=== PATIENT | male | born 1965 | race Caucasian/White ===

== ENCOUNTER 2020-01-22 12:58 | Outpatient (REF) | payer BC, SELFPAY ==
--- NOTE | 2020-01-22 12:59 | CT_ITS ---
EXAMINATION: CT CHEST WITHOUT CONTRAST CLINICAL INFORMATION: Nonspecific abnormal of abnormal finding of lung field COMPARISON: None TECHNIQUE: Multidetector volumetric CT imaging of the chest was done. Axial MIP volume rendering provided. Sagittal and coronal reformatted images were obtained. This CT examination was performed using dose optimization techniques as appropriate, variously including the following: *Automated exposure control *Adjustment of mA and/or kV according to patient size (this includes techniques or standardized protocols for targeted exams where dose is matched to indication/reason for exam; i.e. extremities or head) *Use of iterative reconstruction technique DLP: 254 mGy-cm FINDINGS: LUNGS: There is a 2 mm calcified right lower lobe nodule axial image 307 series 5. The lungs are otherwise clear. There is a 2 mm calcified right lower lobe nodule axial image 349 series 5. MEDIASTINUM: The mediastinum is normal. PLEURA: There is no pleural effusion. No pleural mass or thickening. AXILLA: No lymphadenopathy. UPPER ABDOMEN: There is diverticulosis of the colon. OSSEOUS STRUCTURES: There are degenerative changes of the spine. CT/CT chest wo con IMPRESSION: Small calcified right pulmonary nodules probably representing calcified granulomas. Mild diverticulosis of the colon.
== END 2020-01-22 12:59 | disposition home or self-care (01) ==
LOC: HO.CT 12:58
PROVIDERS: PCP Nurse Practitioner Family; Visit Provider Nurse Practitioner Family
DX: R91.8 Other nonspecific abnormal finding of lung field (principal); R91.1 Solitary pulmonary nodule
CPT/HCPCS: 71250

== ENCOUNTER 2020-10-24 06:02 | Outpatient (REF) | payer BC, SELFPAY ==
[2020-10-24 11:27] LABS: Glucose Urine UA NEG (NEG); Leukocyte Esterase Urine NEG (NEG); Nitrite Urine NEG (NEG); PH 5.5 (5.0-8.0); Specific Gravity - Urine >= 1.030 (1.005-1.025); Urine Blood NEG (NEG); Urine Ketones NEG (NEG); Urine Protein NEG (NEG-TRACE)
[2020-10-24 11:29] LABS: Appearance Urine CLEAR; Color Urine YELLOW
[2020-10-24 11:52] LABS: Alanine Aminotransferase 17 U/L (0-40); Albumin Level 4.4 g/dL (3.5-5.0); Alkaline Phosphatase 75 U/L (39-117); Anion Gap 13 (12-20); Aspartate Amino Transferase 13 U/L (5-37); Bilirubin Total 0.6 mg/dL (0.0-1.0); Blood Urea Nitrogen 14 mg/dL (9-16); Calcium 9.7 mg/dL (8.4-10.2); Carbon Dioxide 26 mmol/L (22-29); Chloride 106 mmol/L (96-108); Cholesterol 151 mg/dL; Estimated Glomerular Filt Rate > 60; Glucose Fasting 89 mg/dL (60-99); HDL Cholesterol 62 mg/dL; LDL Cholesterol Calculated 78 mg/dl; Potassium 4.2 mmol/L (3.3-5.1); Sodium 141 mmol/L (135-145); Total Protein 7.5 g/dL (6.5-8.0); Triglycerides 57 mg/dL
[2020-10-24 11:57] LABS: Prostate Specific Antigen Scr 0.65 ng/mL (<0.05-4.0); TSH reflex Free T4 4.35 uIU/mL (0.32-4.0)
[2020-10-24 12:37] LABS: Free T4 (Free Thyroxine) 0.95 ng/dL (0.71-1.85)
== END 2020-10-24 06:03 | disposition home or self-care (01) ==
LOC: HO.HMGCLDS 06:02
PROVIDERS: PCP Nurse Practitioner Family; Visit Provider Nurse Practitioner Family
DX: Z00.00 Encounter for general adult medical examination without abnormal findings (principal); Z12.5 Encounter for screening for malignant neoplasm of prostate
CPT/HCPCS: 36415; 80053; 80061; 81003; 84153; 84439; 84443

== ENCOUNTER 2020-11-07 07:56 | Outpatient (REF) | payer BC, SELFPAY ==
--- NOTE | ~2020-11-07 | CT_ITS ---
EXAMINATION: CT ABDOMEN AND PELVIS WITH CONTRAST CLINICAL INFORMATION: Lower abdominal pain COMPARISON: None TECHNIQUE: Multidetector volumetric images were obtained from the superior aspect of the liver through the pubic symphysis following administration 85 mL of Omnipaque 350 intravenous contrast. Sagittal and coronal reformatted images were obtained on the technologist's workstation. Oral contrast: No This CT examination was performed using dose optimization techniques as appropriate, variously including the following: *Automated exposure control *Adjustment of mA and/or kV according to patient size (this includes techniques or standardized protocols for targeted exams where dose is matched to indication/reason for exam; i.e. extremities or head) *Use of iterative reconstruction technique DLP: 573.9 mGy-cm FINDINGS: LUNG BASES: Bibasilar atelectasis. The heart is not enlarged. No pericardial effusion. LIVER, GALLBLADDER, AND BILIARY TREE: The liver is normal in size, shape, and attenuation. No focal hepatic lesion or biliary ductal dilatation is present. The gallbladder is unremarkable with no evidence of radiopaque gallstones, gallbladder wall thickening, or obvious pericholecystic inflammatory changes. PANCREAS: Unremarkable. SPLEEN: Unremarkable. ADRENAL GLANDS: Unremarkable. KIDNEYS AND URETERS: The kidneys are normal in size, shape, and attenuation. No hydronephrosis, hydroureter, or calculi seen. No perinephric stranding. BLADDER: Unremarkable. GASTROINTESTINAL TRACT: Colonic diverticulosis without acute diverticulitis. Moderate fecal loading in the rectal vault. The small and large bowel are unremarkable. The appendix is not definitively visualized. No secondary signs of appendicitis. ABDOMINAL WALL: Small fat filled right inguinal hernia. LYMPH NODES: No enlarged lymph nodes per size criteria. Scattered subcentimeter bilateral inguinal and mesenteric lymph nodes are noted. VASCULAR: Abdominal aorta is nonaneurysmal. Retroaortic left renal vein visualized. Pelvic phleboliths are noted. PELVIC VISCERA: The prostate is not enlarged. OSSEOUS STRUCTURES: Degenerative changes of the thoracolumbar spine greatest at L5-S1. No large lytic or blastic lesions are noted. Degenerative changes of the bilateral sacroiliac joints. CT/CT abdomen pelvis w con IMPRESSION: 1. No acute process of the abdomen or pelvis identified. 2. Colonic diverticulosis without acute diverticulitis. 3. Moderate fecal loading in the rectal vault. 4. Small fat filled right inguinal hernia. 5. Retroaortic left renal vein.
[2020-11-07] MEDS: iohexoL 350 MG/ML 100 ML INFUS..BTL IV (10:52)
== END 2020-11-07 07:57 | disposition home or self-care (01) ==
LOC: HO.CT 07:56
PROVIDERS: PCP Nurse Practitioner Family; Visit Provider Nurse Practitioner Family
DX: R10.30 Lower abdominal pain, unspecified (principal)
CPT/HCPCS: 74177; Q9967

== ENCOUNTER 2021-04-23 09:20 | Outpatient (REF) | payer BC, SELFPAY ==
[2021-04-23 11:02] LABS: MANUAL DIFF FLAG NO
[2021-04-23 11:23] LABS: Basophils Percent Auto 0.3 % (0-2); Eosinophils Absolute Auto 0.3 X10*3/uL (0.0-0.4); Eosinophils Percent Auto 4.9 % (0-4); Hematocrit 42.9 % (42.0-52.0); Hemoglobin 13.6 g/dl (14.0-18.0); Imm Gran Abs Auto 0.01 X10*3/uL (0.00-0.03); Imm Gran Pct Auto 0.2 % (0.0-0.4); Lymphocytes Absolute Auto 1.4 X10*3/uL (1.2-4.9); Lymphocytes Percent Auto 22.7 % (20-40); Mean Corpuscular HGB Conc 31.7 g/dl (31.0-36.0); Mean Corpuscular Hemoglobin 27.9 pg (27.0-33.0); Mean Corpuscular Volume 88.1 fL (80.0-98.0); Monocytes Absolute Auto 0.6 X10*3/uL (0.1-1.2); Monocytes Percent Auto 9.1 % (2-11); Neutrophils Percent Auto 62.8 % (45-73); Platelet Count 254 X10*3/uL (160-400); Red Blood Count 4.87 X10*6/uL (4.60-5.80); Red Cell Distribution Width 14.2 % (11.0-16.0); White Blood Count 6.3 X10*3/uL (4.8-10.8)
[2021-04-23 12:00] LABS: TSH reflex Free T4 2.26 uIU/mL (0.32-4.0)
[2021-04-24 09:27] LABS: Thyroid Peroxidase Antibodies 61 IU/mL (<9)
== END 2021-04-23 09:21 | disposition home or self-care (01) ==
LOC: HO.HMGCLDS 09:20
PROVIDERS: Visit Provider Nurse Practitioner Family
DX: J02.9 Acute pharyngitis, unspecified (principal); R94.6 Abnormal results of thyroid function studies
CPT/HCPCS: 36415; 84443; 85025; 86376

== ENCOUNTER 2021-07-08 15:24 | Outpatient (REF) | payer BC, SELFPAY ==
[2021-07-08 16:32] LABS: MANUAL DIFF FLAG NO
[2021-07-08 16:38] LABS: Basophils Percent Auto 0.2 % (0-2); Eosinophils Absolute Auto 0.5 X10*3/uL (0.0-0.4); Eosinophils Percent Auto 5.6 % (0-4); Hematocrit 41.5 % (42.0-52.0); Hemoglobin 13.5 g/dl (14.0-18.0); Imm Gran Abs Auto 0.03 X10*3/uL (0.00-0.03); Imm Gran Pct Auto 0.3 % (0.0-0.4); Lymphocytes Absolute Auto 2.4 X10*3/uL (1.2-4.9); Lymphocytes Percent Auto 27.3 % (20-40); Mean Corpuscular HGB Conc 32.5 g/dl (31.0-36.0); Mean Corpuscular Hemoglobin 27.7 pg (27.0-33.0); Mean Corpuscular Volume 85.2 fL (80.0-98.0); Mean Platelet Volume 10.6 fL (9.4-12.4); Monocytes Absolute Auto 0.7 X10*3/uL (0.1-1.2); Monocytes Percent Auto 8.1 % (2-11); Neutrophils Absolute Auto 5.1 x10*3/uL (2.0-8.3); Neutrophils Percent Auto 58.5 % (45-73); Platelet Count 239 X10*3/uL (160-400); Red Blood Count 4.87 X10*6/uL (4.60-5.80); Red Cell Distribution Width 14.5 % (11.0-16.0); White Blood Count 8.6 X10*3/uL (4.8-10.8)
== END 2021-07-08 15:25 | disposition home or self-care (01) ==
LOC: HO.LAB 15:24
PROVIDERS: PCP Nurse Practitioner Family; Visit Provider Nurse Practitioner Family
DX: D64.9 Anemia, unspecified (principal)
CPT/HCPCS: 36415; 85025

== ENCOUNTER 2021-07-29 | Outpatient (REF) | payer BC, SELFPAY ==
[2021-07-31 06:53] LABS: FIT Int Ctl YES; FIT1 NEGATIVE (NEGATIVE); FIT2 NEGATIVE (NEGATIVE)
== END 2021-07-29 00:01 | disposition home or self-care (01) ==
LOC: HO.LNP
PROVIDERS: Visit Provider Nurse Practitioner Family
DX: D64.9 Anemia, unspecified (principal)
CPT/HCPCS: 82274

== ENCOUNTER 2021-08-03 10:59 | Outpatient (REF) | payer BC, SELFPAY ==
[2021-08-03 12:48] LABS: MANUAL DIFF FLAG NO
[2021-08-03 12:54] LABS: Basophils Percent Auto 0.1 % (0-2); Eosinophils Absolute Auto 0.4 X10*3/uL (0.0-0.4); Eosinophils Percent Auto 5.3 % (0-4); Hematocrit 42.6 % (42.0-52.0); Hemoglobin 13.5 g/dl (14.0-18.0); Imm Gran Abs Auto 0.02 X10*3/uL (0.00-0.03); Imm Gran Pct Auto 0.3 % (0.0-0.4); Immature Retic Fraction 10.4 % (2.3-13.4); Lymphocytes Absolute Auto 1.8 X10*3/uL (1.2-4.9); Lymphocytes Percent Auto 23.9 % (20-40); Mean Corpuscular HGB Conc 31.7 g/dl (31.0-36.0); Mean Corpuscular Hemoglobin 27.8 pg (27.0-33.0); Mean Corpuscular Volume 87.7 fL (80.0-98.0); Mean Platelet Volume 10.7 fL (9.4-12.4); Monocytes Absolute Auto 0.6 X10*3/uL (0.1-1.2); Monocytes Percent Auto 8.7 % (2-11); Neutrophils Absolute Auto 4.5 x10*3/uL (2.0-8.3); Neutrophils Percent Auto 61.7 % (45-73); Platelet Count 233 X10*3/uL (160-400); Red Blood Count 4.86 X10*6/uL (4.60-5.80); Red Cell Distribution Width 14.9 % (11.0-16.0); Retic HGB Equivalent 32.4 pg (30.0-35.0); Reticulocyte Percent 1.1 % (0.5-1.8); Reticulocytes Absolute 0.054 X10*6/uL (0.026-0.095); White Blood Count 7.4 X10*3/uL (4.8-10.8)
[2021-08-03 13:28] LABS: Appearance Urine CLEAR; Color Urine YELLOW; Glucose Urine UA NEG (NEG); Leukocyte Esterase Urine NEG (NEG); Nitrite Urine NEG (NEG); Specific Gravity - Urine 1.025 (1.005-1.025); Urine Blood NEG (NEG); Urine Ketones NEG (NEG); Urine Protein NEG (NEG-TRACE)
[2021-08-03 13:37] LABS: Alanine Aminotransferase 23 U/L (0-40); Albumin Level 4.3 g/dL (3.5-5.0); Alkaline Phosphatase 83 U/L (39-117); Anion Gap 13 (12-20); Aspartate Amino Transferase 15 U/L (5-37); Bilirubin Total 0.6 mg/dL (0.0-1.0); Blood Urea Nitrogen 20 mg/dL (9-16); Calcium 9.1 mg/dL (8.4-10.2); Carbon Dioxide 26 mmol/L (22-29); Chloride 105 mmol/L (96-108); Estimated Glomerular Filt Rate > 60; Ferritin 249 ng/mL (20-250); Glucose Random 94 mg/dL (60-115); Iron 62 mcg/dL (45-160); Percent Iron Saturation 23 % (15-50); Sodium 140 mmol/L (135-145); TSH reflex Free T4 1.93 uIU/mL (0.32-4.0); Total Iron Binding Capacity 270 mcg/dL (228-428); Total Protein 7.6 g/dL (6.5-8.0); Unsaturated Iron Binding 208 ug/dL
[2021-08-03 13:48] LABS: Folate 9.1 ng/mL (> or = 4.0); Vitamin B12 388 pg/mL (200-900)
[2021-08-04 23:16] LABS: Lyme Abs Screen <0.90 index
== END 2021-08-03 11:00 | disposition home or self-care (01) ==
LOC: HO.HMGCLDS 10:59
PROVIDERS: PCP Nurse Practitioner Family; Visit Provider Nurse Practitioner Family
DX: D64.9 Anemia, unspecified (principal)
CPT/HCPCS: 36415; 80053; 81003; 82607; 82728; 82746; 83540; 84443; 85025; 85045; 86617; 86618

== ENCOUNTER 2021-10-20 16:01 | Outpatient (REF) | payer BC, SELFPAY ==
[2021-10-20 16:28] LABS: MANUAL DIFF FLAG NO
[2021-10-20 17:11] LABS: Basophils Percent Auto 0.2 % (0-2); Eosinophils Absolute Auto 0.4 X10*3/uL (0.0-0.4); Eosinophils Percent Auto 4.6 % (0-4); Hematocrit 42.7 % (42.0-52.0); Hemoglobin 14.2 g/dl (14.0-18.0); Imm Gran Abs Auto 0.04 X10*3/uL (0.00-0.03); Imm Gran Pct Auto 0.5 % (0.0-0.4); Immature Retic Fraction 12.3 % (2.3-13.4); Lymphocytes Absolute Auto 2.6 X10*3/uL (1.2-4.9); Lymphocytes Percent Auto 31.1 % (20-40); Mean Corpuscular HGB Conc 33.3 g/dl (31.0-36.0); Mean Corpuscular Hemoglobin 28.9 pg (27.0-33.0); Mean Platelet Volume 10.7 fL (9.4-12.4); Monocytes Absolute Auto 0.7 X10*3/uL (0.1-1.2); Monocytes Percent Auto 8.1 % (2-11); Neutrophils Absolute Auto 4.6 x10*3/uL (2.0-8.3); Neutrophils Percent Auto 55.5 % (45-73); Platelet Count 228 X10*3/uL (160-400); Red Blood Count 4.91 X10*6/uL (4.60-5.80); Red Cell Distribution Width 14.7 % (11.0-16.0); Retic HGB Equivalent 34.2 pg (30.0-35.0); Reticulocyte Percent 1.2 % (0.5-1.8); Reticulocytes Absolute 0.057 X10*6/uL (0.026-0.095); White Blood Count 8.2 X10*3/uL (4.8-10.8)
[2021-10-20 17:31] LABS: Alanine Aminotransferase 31 U/L (0-40); Albumin Level 4.3 g/dL (3.5-5.0); Alkaline Phosphatase 89 U/L (39-117); Anion Gap 17 (12-20); Aspartate Amino Transferase 20 U/L (5-37); Bilirubin Total 0.3 mg/dL (0.0-1.0); Blood Urea Nitrogen 16 mg/dL (9-16); Calcium 9.3 mg/dL (8.4-10.2); Carbon Dioxide 26 mmol/L (22-29); Chloride 106 mmol/L (96-108); Estimated Glomerular Filt Rate > 60; Glucose Random 120 mg/dL (60-115); Iron 46 mcg/dL (45-160); Percent Iron Saturation 16 % (15-50); Potassium 4.2 mmol/L (3.3-5.1); Sodium 145 mmol/L (135-145); Total Iron Binding Capacity 292 mcg/dL (228-428); Total Protein 7.7 g/dL (6.5-8.0); Unsaturated Iron Binding 246 ug/dL
[2021-10-20 17:54] LABS: Ferritin 290 ng/mL (20-250)
[2021-10-21 06:28] LABS: Folate 9.5 ng/mL (> or = 4.0); Vitamin B12 480 pg/mL (200-900)
== END 2021-10-20 16:02 | disposition home or self-care (01) ==
LOC: HO.LAB 16:01
PROVIDERS: PCP Nurse Practitioner Family; Visit Provider Nurse Practitioner Family
DX: D64.9 Anemia, unspecified (principal)
CPT/HCPCS: 36415; 80053; 82607; 82728; 82746; 83540; 85025; 85045

== ENCOUNTER 2022-08-31 08:39 | Outpatient (AMB) | payer BC, SELFPAY ==
[2022-08-31 08:44] VITALS: BP 120/84; PULSE 78; O2SAT 98; BMI 34.9
--- NOTE | 2022-08-31 08:44 | MHC.PC.OV ---
Vital Signs 08/31/22 08:44 Height 5 ft 11 in Weight 250 lb 4 oz BMI 34.9 BP 120/84 Blood Pressure Location Lt brachial Position Sitting Pulse 78 Pulse Source Pulse Oximeter Pulse Oximetry (%) 98 Oxygen Delivery Method Room Air Intake Visit Reasons: 6 Month follow up Allergies No Known Allergies Allergy (Verified 08/31/22 08:45) Medication List - Last Reconciled 08/31/22 by WILLIAM Batista albuterol sulfate 90 mcg/actuation 2 puffs inhalation Q4H PRN ascorbic acid (vitamin C) 100 mg PO DAILY cetirizine (Zyrtec) 10 mg PO DAILY cholecalciferol (vitamin D3) 50 mcg PO DAILY diltiazem HCl ER 180 mg PO BID 90 days [Full Face Mask & Cushions Full face mask & cushions for CPAP device 12 months] [Head Strap Head strap for face mask of CPAP 12 months] losartan 25 mg PO DAILY sildenafil 25 mg PO DAILY PRN 10 days zinc sulfate (Zinkaps) 2 caps PO DAILY Tobacco use date assessed: 08/31/22 Dental Screening Dental Screen Date: 08/31/22 Did you have a dental visit in the last 12 months?: Yes Did you have a dental problem in the last 6 months where you did not have access to dental care?: No Was dental information given to patient?: Patient has dentist HPI 6 Month follow up HPI Details Hx of anemia. Pt was seeing hematology for this but is no longer because his hemoglobin is improved. Pt reports erectile dysfunction. Previous testosterone in February was WNL. Will send sildenafil. Pt denies any GI bleeding, CP, SOB, fevers, chills, fatigue. [facility] Medical History Abnormal mammogram Anemia Asthma Bradycardia C1 esterase inhibitor deficiency Dysphagia GERD (gastroesophageal reflux disease) Jensen's disease HTN (hypertension) Lung nodules REX (obstructive sleep apnea) Right knee meniscal tear Surgical History History of right knee surgery No pertinent past surgical history Family History Father Brainstem hemorrhage Mother Diabetes mellitus Pacemaker Paternal Uncle Medical history non-contributory Sister Mental health disorder Brother Cancer Social History Household Members: Spouse Housing: House Are you a primary hospice home care coordinator to a significant other at home: No Do you presently have visiting nurse or other home services: No Alcohol intake: current Alcohol intake frequency: holidays/special occasions only Patient Tobacco Use Status: Never used Tobacco e-Cigarette/Vaping Use: Never Used Second Hand Smoke Exposure: No service: No Current occupational status: employed Current occupation: [employer] Current occupational exposures/hazards: Yes Cognitive needs: No Hearing needs: No Vision needs: No Questionnaire Thrive Questionnaire Date Thrive assessed: 10/28/21 CONSUELO-7 AMB Questionnaire CONSUELO-7 Date CONSUELO - 7 assessed: 10/28/21 Source: Developed by Drs. Darren Castañeda, Ceci Herrera, Charles Black and colleagues, with an educational lisa from [employer]. Review of Systems Const Reports as per HPI Physical exam (Primary Care) Vital Signs: Last Vital Signs Pulse 78 08/31/22 08:44 BP 120/84 08/31/22 08:44 Pulse Ox 98 08/31/22 08:44 Oxygen Delivery Method Room Air 08/31/22 08:44 BMI result Body Mass Index 34.9 Tobacco/Smoking Status: Tobacco use Status Tobacco use date assessed 08/31/22 08/31/22 08:48 Patient Tobacco Use Status Never used Tobacco 08/31/22 08:48 e-Cigarette/Vaping Use Never Used 08/31/22 08:48 Thrive Assessment: Date of Thrive Assessment Date Thrive assessed 10/28/21 08/31/22 08:48 Const General: cooperative Nutritional Appearance: obese Orientation/consciousness: patient oriented x3 Resp Effort & Inspection: normal respiratory effort Auscultation: clear to auscultation bilaterally Cardio Rate: regular rate Rhythm: regular rhythm Heart sounds: S1 normal heart sound present and S2 normal heart sound present Skin Other: right dorsal forearm distal aspect with raises whitish indurated lesion, next to that with brown macular lesion, discolored lesion to left dorsal forearm Neuro General: patient oriented x3 Psych Appearance: grossly normal Mental Status: mental status grossly normal Speech and movement: Normal speech and movement present Affect: normal affect Attitude: cooperative Thought process: Normal thought process present Thought content: Normal thought content present Insight: Good insight present (Psych) Judgement: Good judgement present (Psych) Assessment and Plan Assessment & Plan (1) Anemia: Code(s): D64.9 - Anemia, unspecified (2) Skin lesion: Code(s): L98.9 - Disorder of the skin and subcutaneous tissue, unspecified (3) Erectile dysfunction: Code(s): N52.9 - Male erectile dysfunction, unspecified Plan The patient agreed to the use of a medical research tech for this encounter. Scribed for WILLIAM Lomeli by Nano Martinez medical research tech, on 08/31/2022 at 09:00 EST. Orders: Referrals Dermatology Referral L98.9 - Disorder of the skin and subcutaneous tissue, unspecified Medications: New sildenafil administer 30 minutes to 4 hours before activity 25 mg PO DAILY 10 days PRN 10 tabs 0RF sexual activity Coding Level of Care Code Est Pt Level 3 (68411) Diagnoses Anemia D64.9 Skin lesion L98.9 Erectile dysfunction N52.9
== END 2022-08-31 11:00 | disposition home or self-care (01) ==
PROVIDERS: Visit Provider Nurse Practitioner Family
DX: D64.9 Anemia, unspecified (principal); L98.9 Disorder of the skin and subcutaneous tissue, unspecified; N52.9 Male erectile dysfunction, unspecified
CPT/HCPCS: 99213

== ENCOUNTER 2022-08-31 09:14 | Outpatient (REF) | payer BC, SELFPAY ==
[2022-08-31 11:20] LABS: MANUAL DIFF FLAG NO
[2022-08-31 11:23] LABS: Appearance Urine Clear; Color Urine Yellow; Glucose Urine UA Negative (Negative); Leukocyte Esterase Urine Negative (Negative); Nitrite Urine Negative (Negative); PH 5.5 (5.0-9.0); Urine Blood Negative (Negative); Urine Ketones Negative (Negative); Urine Protein Negative (Neg-Trace)
[2022-08-31 11:31] LABS: Basophils Percent Auto 0.1 % (0-2); Eosinophils Absolute Auto 0.3 X10*3/uL (0.0-0.4); Eosinophils Percent Auto 4.7 % (0-4); Hematocrit 44.4 % (42.0-52.0); Hemoglobin 14.4 g/dl (14.0-18.0); Imm Gran Abs Auto 0.02 X10*3/uL (0.00-0.03); Imm Gran Pct Auto 0.3 % (0.0-0.4); Lymphocytes Absolute Auto 1.8 X10*3/uL (1.2-4.9); Lymphocytes Percent Auto 26.2 % (20-40); Mean Corpuscular HGB Conc 32.4 g/dl (31.0-36.0); Mean Corpuscular Hemoglobin 28.3 pg (27.0-33.0); Mean Corpuscular Volume 87.2 fL (80.0-98.0); Mean Platelet Volume 10.5 fL (9.4-12.4); Monocytes Absolute Auto 0.6 X10*3/uL (0.1-1.2); Monocytes Percent Auto 8.7 % (2-11); Neutrophils Absolute Auto 4.1 x10*3/uL (2.0-8.3); Platelet Count 243 X10*3/uL (160-400); Red Blood Count 5.09 X10*6/uL (4.60-5.80); Red Cell Distribution Width 14.8 % (11.0-16.0); White Blood Count 6.8 X10*3/uL (4.8-10.8)
[2022-08-31 11:53] LABS: Alanine Aminotransferase 48 U/L (0-40); Albumin Level 4.2 g/dL (3.5-5.0); Alkaline Phosphatase 83 U/L (39-117); Anion Gap 14 (12-20); Aspartate Amino Transferase 24 U/L (5-37); Bilirubin Total 0.5 mg/dL (0.0-1.0); Blood Urea Nitrogen 14 mg/dL (9-16); Calcium 9.6 mg/dL (8.4-10.2); Carbon Dioxide 24 mmol/L (22-29); Chloride 105 mmol/L (96-108); Cholesterol 141 mg/dL; Estimated Glomerular Filt Rate > 60; Glucose Fasting 99 mg/dL (60-99); HDL Cholesterol 64 mg/dL; LDL Cholesterol Calculated 67 mg/dl; Potassium 4.2 mmol/L (3.3-5.1); Sodium 139 mmol/L (135-145); Total Protein 7.9 g/dL (6.5-8.0); Triglycerides 50 mg/dL
[2022-08-31 12:03] LABS: Prostate Specific Antigen Scr 0.85 ng/mL (<0.05-4.0)
[2022-08-31 12:11] LABS: TSH reflex Free T4 3.45 uIU/mL (0.32-4.0)
== END 2022-08-31 09:15 | disposition home or self-care (01) ==
LOC: HO.HMGCLDS 09:14
PROVIDERS: PCP Nurse Practitioner Family; Visit Provider Nurse Practitioner Family
DX: Z00.00 Encounter for general adult medical examination without abnormal findings (principal); Z12.5 Encounter for screening for malignant neoplasm of prostate; D64.9 Anemia, unspecified; R94.6 Abnormal results of thyroid function studies; Z13.220 Encounter for screening for lipoid disorders
CPT/HCPCS: 36415; 80053; 80061; 81003; 84153; 84443; 85025

== ENCOUNTER 2022-09-15 08:46 | Outpatient (REF) | payer BC, SELFPAY ==
--- NOTE | ~2022-09-15 | US_ITS ---
EXAMINATION: US ABDOMEN COMPLETE CLINICAL INFORMATION: Elevated liver enzymes. COMPARISON: CT abdomen and pelvis 11/07/2020. Ultrasound abdomen 09/06/2014. TECHNIQUE: Real-time imaging of the abdominal viscera. FINDINGS: PANCREAS: Normal. ABDOMINAL AORTA: The proximal, mid, and distal segments are normal in caliber. INFERIOR VENA CAVA: Visualized portions are normal. LIVER: The liver is normal in size. The liver contour is normal. Increased hepatic echogenicity which can be seen in the setting of hepatic steatosis or underlying liver disease. No focal hepatic lesion. There is no intrahepatic biliary duct dilatation seen. GALLBLADDER: Normal. The gallbladder is physiologically distended without evidence of stones, sludge, polyps, wall thickening or pericholecystic fluid. COMMON BILE DUCT: Normal in caliber measuring 0.2 cm in diameter. RIGHT KIDNEY: Normal. No hydronephrosis. No renal calculi or focal parenchymal lesions. The kidney measures 13.2 cm in maximum dimension. LEFT KIDNEY: Normal. No hydronephrosis. No renal calculi or focal parenchymal lesions. The kidney measures 13.1 cm in maximum dimension. SPLEEN: Normal. The spleen measures 11.8 cm in maximum dimension. FREE FLUID: None. US/US abdomen complete IMPRESSION: Increased hepatic echogenicity which can be seen in the setting of hepatic steatosis or underlying liver disease.
== END 2022-09-15 08:47 | disposition home or self-care (01) ==
LOC: HO.HMGCX 08:46
PROVIDERS: PCP Nurse Practitioner Family; Visit Provider Nurse Practitioner Family
DX: R74.8 Abnormal levels of other serum enzymes (principal)
CPT/HCPCS: 76700

== ENCOUNTER 2023-06-22 13:01 | Outpatient (AMB) | payer BC, SELFPAY ==
--- NOTE | 2023-06-22 13:31 | MHC.PC.OV ---
Vital Signs 06/22/23 13:32 Height 5 ft 11 in Weight 250 lb BMI 34.9 BP 130/88 Blood Pressure Location Lt brachial Position Sitting Pulse 74 Pulse Source Pulse Oximeter Pulse Oximetry (%) 98 Oxygen Delivery Method Room Air Intake Visit Reasons: Physical Exam Intake Note: Patient here for physical exam colon: 2018 due in 10yrs Allergies No Known Allergies Allergy (Verified 06/22/23 13:51) Medication List - Last Reconciled 06/22/23 by WILLIAM Batista albuterol sulfate 90 mcg/actuation 2 puffs inhalation Q4H PRN ascorbic acid (vitamin C) 100 mg PO DAILY cetirizine (Zyrtec) 10 mg PO DAILY cholecalciferol (vitamin D3) 50 mcg PO DAILY CPAP CPAP and all supplies, settings [employer] 4.0-18.0 cmH2O, heated humidifier, Length of need-5 years diltiazem HCl ER 180 mg PO BID 90 days [Full Face Mask & Cushions Full face mask & cushions for CPAP device 12 months] [Head Strap Head strap for face mask of CPAP 12 months] losartan 25 mg PO DAILY sildenafil 25 mg PO DAILY PRN 10 days zinc sulfate (Zinkaps) 2 caps PO DAILY Tobacco use date assessed: 06/22/23 Dental Screening Dental Screen Date: 06/22/23 Did you have a dental visit in the last 12 months?: Yes Did you have a dental problem in the last 6 months where you did not have access to dental care?: No Was dental information given to patient?: Patient has dentist HPI Physical Exam HPI Details Pt is here for a PE. Will order labs. Colon screen is up to date. Due for PSA in the near future, will order. Denies dribbling with urination, weak stream, and frequent nocturia. [facility] Medical History Fatty liver Asthma Dysphagia C1 esterase inhibitor deficiency Lung nodules Right knee meniscal tear Abnormal mammogram Bradycardia Anemia GERD (gastroesophageal reflux disease) Jensen's disease REX (obstructive sleep apnea) HTN (hypertension) Surgical History History of right knee surgery No pertinent past surgical history Family History Father Brainstem hemorrhage Mother Diabetes mellitus Pacemaker Paternal Uncle Medical history non-contributory Sister Mental health disorder Brother Cancer Social History Household Members: Spouse Housing: House Are you a primary child care attendant school to a significant other at home: No Do you presently have visiting nurse or other home services: No Alcohol intake: current Alcohol intake frequency: holidays/special occasions only Patient Tobacco Use Status: Never used Tobacco e-Cigarette/Vaping Use: Never Used Second Hand Smoke Exposure: No service: No Current occupational status: employed Current occupation: [employer] Current occupational exposures/hazards: Yes Cognitive needs: No Hearing needs: No Vision needs: No Questionnaire Thrive Questionnaire Date Thrive assessed: 10/28/21 AUDIT C Alcohol Use Questionnaire (AUDIT-C) 1. How often do you have a drink containing alcohol?: Monthly or less 2. How many drinks containing alcohol do you have on a typical day when you are drinking?: 1 or 2 3. How often do you have six or more drinks on one occasion?: Never Total Score: 1 Score Reviewed/Action Taken: No CONSUELO-7 AMB Questionnaire CONSUELO-7 Date CONSUELO - 7 assessed: 10/28/21 Source: Developed by Drs. Darren Castañeda, Ceci Herrera, Charles Black and colleagues, with an educational lisa from [employer] [place]. Review of Systems Const Denies chills and Denies fever(s) Eyes Denies blurry vision ENT Denies vertigo, Denies dizziness and Denies sore throat Card Denies chest pain at rest, Denies chest pain with activity, Denies diaphoresis, Denies dyspnea and Denies dyspnea on exertion Resp Denies cough, Denies dyspnea, Denies dyspnea on exertion and Denies wheezing GI Denies abdominal pain, Denies melena, Denies hematochezia, Denies constipation, Denies diarrhea and Denies loose stools Denies hematuria Musc Denies numbness and Denies tingling Skin/Breast Denies lesions Neuro Denies vertigo, Denies dizziness, Denies numbness and Denies tingling Psych Denies anxiety, Denies depression, Denies homicidal ideation, Denies suicidal ideation and Denies other (substance abuse) Aller/Immun Denies wheezing Physical exam (Primary Care) Vital Signs: Last Vital Signs Pulse 74 06/22/23 13:32 BP 130/88 06/22/23 13:32 Pulse Ox 98 06/22/23 13:32 Oxygen Delivery Method Room Air 06/22/23 13:32 BMI result Body Mass Index 34.9 Tobacco/Smoking Status: Tobacco use Status Tobacco use date assessed 06/22/23 06/22/23 13:36 Patient Tobacco Use Status Never used Tobacco 06/22/23 13:32 e-Cigarette/Vaping Use Never Used 06/22/23 13:32 Thrive Assessment: Date of Thrive Assessment Date Thrive assessed 10/28/21 06/22/23 13:32 Const General: cooperative Nutritional Appearance: obese Orientation/consciousness: patient oriented x3 HENMT Head: Yes normal to inspection, Yes normocephalic and Yes atraumatic Ears: TM's normal bilaterally Eyes General: appearance normal, both eyes and all related structures Alignment and Position: alignment normal and position normal Neck Neck: Yes normal visual inspection and Yes no lymphadenopathy Thyroid: Thyroid normal Resp Effort & Inspection: normal respiratory effort Auscultation: clear to auscultation bilaterally Cardio Rate: regular rate Rhythm: regular rhythm Heart sounds: S1 normal heart sound present, S2 normal heart sound present and no murmurs GI Palpation (GI): Soft to palpation and nontender Auscultation: normal bowel sounds Male General Exam: Yes normal external exam Penis: normal penis Scrotum: scrotum normal, testes descended bilaterally and no inguinal hernias Testes: no testicular mass Skin Rashes: no rashes Neuro General: patient oriented x3, moves all extremities, no focal motor deficits and deep tendon reflexes 2+ bilaterally Romberg Test: Negative Psych Appearance: grossly normal Mental Status: mental status grossly normal Speech and movement: Normal speech and movement present Affect: normal affect Attitude: cooperative Thought process: Normal thought process present Thought content: Normal thought content present Insight: Good insight present (Psych) Judgement: Good judgement present (Psych) Assessment and Plan Assessment & Plan (1) Physical exam: Code(s): Z00.00 - Encounter for general adult medical examination without abnormal findings Plan: Labs ordered (2) Screening PSA (prostate specific antigen): Code(s): Z12.5 - Encounter for screening for malignant neoplasm of prostate Plan: PSA ordered Plan The patient agreed to the use of a medical billing manager for this encounter. Scribed for SHILPA Lomeli-LUIS by Nano Martinez medical billing manager, on 06/22/2023 at 13:55 EST. Orders: Orders Comprehensive Matthews. Panel Fast Today Z00.00 - Encounter for general adult medical examination without abnormal findings TSH reflex Free T4 Today Z00.00 - Encounter for general adult medical examination without abnormal findings UA CC w/rflx Micro + Cult Today Z00.00 - Encounter for general adult medical examination without abnormal findings Complete Blood Count Auto Diff Today Z00.00 - Encounter for general adult medical examination without abnormal findings Lipid Panel Today Z00.00 - Encounter for general adult medical examination without abnormal findings Prostate Specific Antigen Scr Today Z12.5 - Encounter for screening for malignant neoplasm of prostate Coding Level of Care Code Est Pt Prev Care 40-64y(33154) Diagnoses Physical exam Z00.00 Screening PSA (prostate specific antigen) Z12.5
[2023-06-22 13:32] VITALS: BP 130/88; PULSE 74; O2SAT 98; BMI 34.9
== END 2023-06-22 14:01 | disposition home or self-care (01) ==
PROVIDERS: PCP Nurse Practitioner Family; Visit Provider Nurse Practitioner Family
DX: Z00.00 Encounter for general adult medical examination without abnormal findings (principal); Z12.5 Encounter for screening for malignant neoplasm of prostate
CPT/HCPCS: 99396

== ENCOUNTER 2023-06-23 07:30 | Outpatient (REF) | payer BC, SELFPAY ==
[2023-06-23 10:22] LABS: MANUAL DIFF FLAG NO
[2023-06-23 10:31] LABS: Basophils Percent Auto 0.4 % (0-2); Eosinophils Absolute Auto 0.3 X10*3/uL (0.0-0.4); Eosinophils Percent Auto 4.6 % (0-4); Hematocrit 43.3 % (42.0-52.0); Imm Gran Abs Auto 0.02 X10*3/uL (0.00-0.03); Imm Gran Pct Auto 0.3 % (0.0-0.4); Lymphocytes Absolute Auto 1.9 X10*3/uL (1.2-4.9); Lymphocytes Percent Auto 27.4 % (20-40); Mean Corpuscular HGB Conc 32.3 g/dl (31.0-36.0); Mean Corpuscular Hemoglobin 28.1 pg (27.0-33.0); Mean Corpuscular Volume 86.9 fL (80.0-98.0); Mean Platelet Volume 10.5 fL (9.4-12.4); Monocytes Absolute Auto 0.7 X10*3/uL (0.1-1.2); Monocytes Percent Auto 9.7 % (2-11); Neutrophils Absolute Auto 3.9 x10*3/uL (2.0-8.3); Neutrophils Percent Auto 57.6 % (45-73); Platelet Count 219 X10*3/uL (160-400); Red Blood Count 4.98 X10*6/uL (4.60-5.80); Red Cell Distribution Width 14.9 % (11.0-16.0); White Blood Count 6.8 X10*3/uL (4.8-10.8)
[2023-06-23 11:28] LABS: Prostate Specific Antigen Scr 1.04 ng/mL (<0.05-4.0)
[2023-06-23 11:29] LABS: Alanine Aminotransferase 49 U/L (0-40); Albumin Level 4.1 g/dL (3.5-5.0); Alkaline Phosphatase 74 U/L (39-117); Anion Gap 14 (12-20); Aspartate Amino Transferase 24 U/L (5-37); Bilirubin Total 0.4 mg/dL (0.0-1.0); Blood Urea Nitrogen 12 mg/dL (9-16); Calcium 9.8 mg/dL (8.4-10.2); Carbon Dioxide 26 mmol/L (22-29); Chloride 107 mmol/L (96-108); Cholesterol 126 mg/dL (<200); Estimated Glomerular Filt Rate > 60; Glucose Fasting 96 mg/dL (60-99); HDL Cholesterol 52 mg/dL (>40); LDL Cholesterol Calculated 66 mg/dL (<100); Potassium 4.8 mmol/L (3.3-5.1); Sodium 142 mmol/L (135-145); TSH reflex Free T4 4.22 uIU/mL (0.32-4.0); Total Protein 7.7 g/dL (6.5-8.0); Triglycerides 40 mg/dL (<150)
[2023-06-23 11:33] LABS: Appearance Urine Turbid; Color Urine Dark Yellow; Glucose Urine UA Negative (Negative); Leukocyte Esterase Urine Negative (Negative); Nitrite Urine Negative (Negative); PH 5.5 (5.0-9.0); Specific Gravity - Urine >= 1.030 (1.005-1.025); Urine Blood Negative (Negative); Urine Ketones Negative (Negative); Urine Protein Negative (Neg-Trace)
[2023-06-23 12:12] LABS: Free T4 (Free Thyroxine) 0.84 ng/dL (0.71-1.85)
== END 2023-06-23 07:31 | disposition home or self-care (01) ==
LOC: HO.HMGCLDS 07:30
PROVIDERS: PCP Nurse Practitioner Family; Visit Provider Nurse Practitioner Family
DX: Z00.00 Encounter for general adult medical examination without abnormal findings (principal); Z12.5 Encounter for screening for malignant neoplasm of prostate; Z13.6 Encounter for screening for cardiovascular disorders
CPT/HCPCS: 36415; 80053; 80061; 81003; 84153; 84439; 84443; 85025

== ENCOUNTER 2024-07-19 08:05 | Outpatient (AMB) | payer BC, SELFPAY ==
--- NOTE | 2024-07-19 08:10 | A.OFFPC_ITS ---
Vital Signs 07/19/24 08:11 Height 5 ft 11 in Weight 254 lb BMI 35.4 BP 120/80 Blood Pressure Location Rt brachial Position Sitting Pulse 85 Pulse Source Pulse Oximeter Pulse Oximetry (%) 98 Oxygen Delivery Method Room Air Intake Visit Reasons: PE Au Pair Required: No Accompanied by: Self / Same As Patient Allergies No Known Allergies Allergy (Verified 07/19/24 08:12) Tobacco use date assessed: 07/19/24 Dental Screening Dental Screen Date: 07/19/24 Did you have a dental visit in the last 12 months?: Yes Did you have a dental problem in the last 6 months where you did not have access to dental care?: No Was dental information given to patient?: Patient has dentist HPI PE HPI Details History of Present Illness The patient is a 59-year-old male presenting with concerns related to sleep apnea management. He uses a CPAP machine consistently as part of his treatment plan. However, he has recently encountered a machine malfunction, indicated by an error code suggesting a motor issue, necessitating a replacement. The patient is compliant with his treatment regimen and intends to provide the necessary information through the patient portal to facilitate the acquisition of a new machine. Additionally, a referral to sleep medicine for a follow-up sleep study is planned, given the lapse in time since his last assessment. The patient denies any symptoms such as chest pain, shortness of breath, or abdominal issues and has no urinary complaints, with regular bowel movements reported. Health Maintenance - Referral to sleep medicine for a follo w-up sleep study due to an extended period since the last evaluation. Social History Review of Systems - Respiratory: Denies chest pain or shor tness of breath. - Gastrointestinal: Denies abdominal edgar n, constipation, diarrhea, or blood in stool. - Genitourinary: Denies urinary issues. -denies any si or hi Physical Exam General: Cooperative, healthy appearing, comfortable, no acute distress and well developed, obese Orientation: Patient oriented x3 Limitations: No limitations Head: Normal to inspection Ears: Hearing grossly normal bilaterally Nose: Normal external nose present Face and sinus: Normal facial exam Eyes: Appearance normal, both eyes and all related structures Neck: Normal visual inspection and Yes full ROM Respiratory: Normal respiratory effort and able to speak in complete sentences. Clear to auscultation bilaterally. Patient uses a CPAP machine. Cardiovascular: Regular rate and rhythm. Normal S1 and S2 GI: Normal to inspection. Soft to palpation and nontender Skin: No rashes or lesions noted Neuro: Patient oriented x3 Extremities: Normal to inspection Results Plan The patient needs a replacement CPAP machine due to a malfunction of the current device. I will order a new machine upon receiving the necessary information through the patient portal. Additionally, a referral to sleep medicine for a follow-up sleep study is planned to reassess the treatment plan. This will aid in optimizing the management of his sleep apnea. Discussion Notes I discussed with the patient the need for a replacement CPAP machine due to its current malfunction. We talked about the importance of maintaining compliance with his CPAP therapy to manage his sleep apnea effectively. I explained the steps necessary to facilitate the ordering of a new machine once he provides the required details through the patient portal. I also informed him about the referral to sleep medicine for a follow-up sleep study, which will help evaluate his condition further and adjust his treatment plan as needed. The patient was informed about the benefits of the follow-up study to ensure optimal management of his sleep apnea. Patient Instructions - Send necessary information regarding t he CPAP machine through the patient portal. - Await contact for scheduling a follow- up sleep study with sleep medicine. - Continue using the CPAP machine as dir ected until the replacement is obtained. [facility] Medical History Fatty liver Asthma Dysphagia C1 esterase inhibitor deficiency Lung nodules Right knee meniscal tear Abnormal mammogram Bradycardia Anemia GERD (gastroesophageal reflux disease) Jensen's disease REX (obstructive sleep apnea) HTN (hypertension) Surgical History History of right knee surgery No pertinent past surgical history Family History Father Brainstem hemorrhage Mother Diabetes mellitus Pacemaker Paternal Uncle Medical history non-contributory Sister Mental health disorder Brother Cancer Social History Household Members: Spouse Housing: House Are you a primary dog daycare provider to a significant other at home: No Do you presently have visiting nurse or other home services: No Alcohol intake: current Alcohol intake frequency: holidays/special occasions only Patient Tobacco Use Status: Never used Tobacco e-Cigarette/Vaping Use: Never Used Second Hand Smoke Exposure: No service: No Current occupational status: employed Current occupation: [employer] Current occupational exposures/hazards: Yes Cognitive needs: No Hearing needs: No Vision needs: No Questionnaire PHQ-9 Over the last 2 weeks, how often have you been bothered by any of the following problems? 1. Little interest or pleasure in doing things: not at all 2. Feeling down, depressed, or hopeless: not at all 3. Trouble falling or staying asleep, or sleeping too much: not at all 4. Feeling tired or having little energy: more than half the days 5. Poor appetite or overeating: not at all 6. Feeling bad about yourself - or that you are a failure or have let yourself or your family down: not at all 7. Trouble concentrating on things, such as reading the newspaper or watching television: not at all 8. Moving or speaking so slowly that other people could have noticed. Or the opposite - being so fidgety or restless that you have been moving around a lot more than usual: not at all 9. Thoughts that you would be better off or of hurting yourself in some way: not at all Total score: 2 Depression Screening Interpretation: Negative Depression Screening Done: Yes 44515 - PHQ-9 Billing: Yes Source: Developed by Drs. Darren Castañeda, Ceci Herrera, Charles Black and colleagues, with an educational lisa from [employer]. Thrive Questionnaire Date Thrive assessed: 07/19/24 I am a: Patient What is your living situation today?: I have a steady place to live Within the past 12 months, did the food you bought not last and you didn't have the money to get more?: Never true Within the past 12 months, did you worry whether your food would run out before you got money to buy more?: Never true Do you have trouble paying for medicines?: No Do you have trouble getting transportation to medical appointments?: No Do you have trouble paying your heating and electricity bill?: No Do you have trouble taking care of your child, family member or friend?: No Do you have trouble with day-to-day activities such as bathing, preparing meals, shopping, managing finances, etc.?: No Are you currently unemployed and looking for a job?: No Are you interested in more education?: No Please select the resources that you would like help with: None Currently or been in a relationship where the following occur: No concerns reported THRIVE Score: 0 AUDIT C Alcohol Use Questionnaire (AUDIT-C) 1. How often do you have a drink containing alcohol?: 2-4 times a month 2. How many drinks containing alcohol do you have on a typical day when you are drinking?: 1 or 2 3. How often do you have six or more drinks on one occasion?: Never Total Score: 2 Score Reviewed/Action Taken: Yes CONSUELO-7 AMB Questionnaire CONSUELO-7 Date CONSUELO - 7 assessed: 07/19/24 Feeling nervous, anxious, or on edge: 0 = Not at all Not being able to stop or control worryin = Not at all Worrying too much about different things: 0 = Not at all Trouble relaxin = Not at all Being so restless that it is hard to sit still: 0 = Not at all Becoming easily annoyed or irritable: 0 = Not at all Feeling afraid as if something awful might happen: 0 = Not at all Total CONSUELO-7 score (0-4 normal; 5-9 mild; 10-14 moderate; 15-21 severe): 0 Source: Developed by Drs. Darren Castañeda, Ceci Herrera, Charles Black and colleagues, with an educational lisa from [employer]. CONSUELO-7 Assessment Billing CONSUELO-7 Assessment Tool: CONSUELO-7 Assessment 12626 Physical exam (Primary Care) Vital Signs: Last Vital Signs Pulse 85 07/19/24 08:11 BP 120/80 07/19/24 08:11 Pulse Ox 98 07/19/24 08:11 Oxygen Delivery Method Room Air 07/19/24 08:11 BMI result Body Mass Index 35.4 Tobacco/Smoking Status: Tobacco use Status Tobacco use date assessed 07/19/24 07/19/24 08:14 Patient Tobacco Use Status Never used Tobacco 07/19/24 08:14 e-Cigarette/Vaping Use Never Used 07/19/24 08:14 PHQ-9: PHQ-9 Score PHQ-9: Total score 2 07/19/24 08:14 Depression Screening Interpretation: Negative Thrive Assessment: Date of Thrive Assessment Date Thrive assessed 07/19/24 07/19/24 08:14 Currently or been in a relationship where the following occur: No concerns reported Coding Level of Care Code Est Pt Prev Care 40-64y(20000) Diagnoses Physical exam Z00.00 Screening PSA (prostate specific antigen) Z12.5 REX (obstructive sleep apnea) G47.33 REX on CPAP G47.33 Additional Codes CONSUELO-7 Assessment Billing - CONSUELO-7 Assessment Tool: CONSUELO-7 Assessment 85261 ([id number]) PHQ-9 - 80098 - PHQ-9 Billing: Yes ([id number]) Assessment & Plan Assessment & Plan (1) Physical exam: Code(s): Z00.00 - Encounter for general adult medical examination without abnormal findings Category: Medical (2) Screening PSA (prostate specific antigen): Code(s): Z12.5 - Encounter for screening for malignant neoplasm of prostate Category: Medical (3) REX (obstructive sleep apnea): Code(s): G47.33 - Obstructive sleep apnea (adult) (pediatric) Category: Medical (4) REX on CPAP: Code(s): G47.33 - Obstructive sleep apnea (adult) (pediatric) Category: Medical Plan . Orders: Orders Comprehensive [place]. Panel Fast Today Z00.00 - Encounter for general adult medical examination without abnormal findings TSH reflex Free T4 Today Z00.00 - Encounter for general adult medical examination without abnormal findings UA CC w/rflx Micro + Cult Today Z00.00 - Encounter for general adult medical examination without abnormal findings Lipid Panel Today Z00.00 - Encounter for general adult medical examination without abnormal findings Complete Blood Count Auto Diff Today Z00.00 - Encounter for general adult medical examination without abnormal findings Prostate Specific Antigen Scr Today Z12.5 - Encounter for screening for malignant neoplasm of prostate Referrals Sleep Medicine Referral G47.33 - Obstructive sleep apnea (adult) (pediatric)
[2024-07-19 08:11] VITALS: BP 120/80; PULSE 85; O2SAT 98; BMI 35.4
== END 2024-07-19 08:43 | disposition home or self-care (01) ==
LOC: HO.HMCC 08:05
PROVIDERS: PCP Nurse Practitioner Family; Visit Provider Nurse Practitioner Family
DX: Z00.00 Encounter for general adult medical examination without abnormal findings (principal); Z12.5 Encounter for screening for malignant neoplasm of prostate; G47.33 Obstructive sleep apnea (adult) (pediatric)

== ENCOUNTER 2024-07-19 08:05 | Outpatient (REF) | payer BC, SELFPAY ==
[2024-07-19 10:24] LABS: MANUAL DIFF FLAG NO
[2024-07-19 10:44] LABS: Basophils Percent Auto 0.5 % (0-2); Eosinophils Absolute Auto 0.3 X10*3/uL (0.0-0.4); Eosinophils Percent Auto 4.3 % (0-4); Hematocrit 43.4 % (42.0-52.0); Hemoglobin 14.2 g/dl (14.0-18.0); Imm Gran Abs Auto 0.03 X10*3/uL (0.00-0.03); Imm Gran Pct Auto 0.5 % (0.0-0.4); Lymphocytes Absolute Auto 1.8 X10*3/uL (1.2-4.9); Lymphocytes Percent Auto 27.7 % (20-40); Mean Corpuscular HGB Conc 32.7 g/dl (31.0-36.0); Mean Corpuscular Hemoglobin 28.5 pg (27.0-33.0); Mean Platelet Volume 10.8 fL (9.4-12.4); Monocytes Absolute Auto 0.6 X10*3/uL (0.1-1.2); Monocytes Percent Auto 9.7 % (2-11); Neutrophils Absolute Auto 3.7 x10*3/uL (2.0-8.3); Neutrophils Percent Auto 57.3 % (45-73); Platelet Count 223 X10*3/uL (160-400); Red Blood Count 4.99 X10*6/uL (4.60-5.80); Red Cell Distribution Width 14.9 % (11.0-16.0); White Blood Count 6.5 X10*3/uL (4.8-10.8)
[2024-07-19 10:57] LABS: Appearance Urine Clear; Color Urine Dark Yellow; Glucose Urine UA Negative (Negative); Leukocyte Esterase Urine Negative (Negative); Nitrite Urine Negative (Negative); PH 6.5 (5.0-9.0); UMIC TRIGGER UACC YES; Urine Blood Negative (Negative); Urine Ketones Negative (Negative); Urine Protein 100 (2+) mg/dL (Neg-Trace)
[2024-07-19 11:15] LABS: Bacteria Urine None Seen (None Seen); Hyaline Casts Urine 0-2 /LPF (0-2); RBC Urine 0-2 /HPF (0-2); Squamous Epithelial Cell Urine 0-2 /HPF (0-2); WBC Urine 0-5 /HPF (0-5)
[2024-07-19 11:34] LABS: Alanine Aminotransferase 72 U/L (0-40); Albumin Level 4.2 g/dL (3.5-5.0); Alkaline Phosphatase 81 U/L (39-117); Anion Gap 12 (12-20); Aspartate Amino Transferase 33 U/L (5-37); Bilirubin Total 0.5 mg/dL (0.0-1.0); Blood Urea Nitrogen 10 mg/dL (9-16); Calcium 9.4 mg/dL (8.4-10.2); Carbon Dioxide 28 mmol/L (22-29); Chloride 109 mmol/L (96-108); Cholesterol 133 mg/dL (<200); Estimated Glomerular Filt Rate > 60; Glucose Fasting 93 mg/dL (60-99); HDL Cholesterol 56 mg/dL (>40); LDL Cholesterol Calculated 67 mg/dL (<100); Potassium 4.8 mmol/L (3.3-5.1); Sodium 144 mmol/L (135-145); Total Protein 7.6 g/dL (6.5-8.0); Triglycerides 51 mg/dL (<150)
[2024-07-19 11:44] LABS: Prostate Specific Antigen Scr 1.48 ng/mL (<0.05-4.0)
[2024-07-19 11:56] LABS: TSH reflex Free T4 2.97 uIU/mL (0.32-4.0)
== END 2024-07-19 08:06 | disposition home or self-care (01) ==
LOC: HO.HMGCLDS 08:05
PROVIDERS: PCP Nurse Practitioner Family; Visit Provider Nurse Practitioner Family
DX: Z00.00 Encounter for general adult medical examination without abnormal findings (principal); G47.33 Obstructive sleep apnea (adult) (pediatric); Z12.5 Encounter for screening for malignant neoplasm of prostate
CPT/HCPCS: 36415; 80053; 80061; 81001; 84153; 84443; 85025; 96127

== ENCOUNTER 2024-09-14 07:50 | Outpatient (AMB) | payer BC, SELFPAY ==
[2024-09-14 08:03] VITALS: PULSE 83; O2SAT 95; BMI 35.1
--- NOTE | 2024-09-14 08:03 | A.OFFVIS_ITS ---
Vital Signs 09/14/24 08:03 Height 5 ft 11 in Weight 252 lb BMI 35.1 Pulse 83 Pulse Source Pulse Oximeter Pulse Oximetry (%) 95 Oxygen Delivery Method Room Air Intake Visit Reasons: 07/19LVM+LET INP-REX Intake Note: Patient presents [employer] REX. The patient needs a replacement CPAP machine due to a malfunction of the current device. Patient uses [employer] for CME. States motor on CPAP at end needs new CPAP. Lst sleep study over 10 years ago Allergies No Known Allergies Allergy (Verified 09/14/24 08:08) HPI Comments Details: 59 year old male with h/o Asthma and Lung Nodules, presents for a new patient evaluation, he is referred to us by his pcp. [facility], the machine is showing his battery life has ended and he needs a sleep study to continue cpap therapy. He has been using his machine consistently however he is not being monitored for compliance due to cardiology specialist being outdated. He goes to sleep at 9pm, and gets up at 5am, with 1x bathroom break. He snores loudly when not able to use his cpap. He feels refreshed in the AM when he uses his cpap. He has asthma and joint pain with fatigue when he does not use his machine. He grinds his teeth, denies jaw pain. He notices his mouth gets dry upon waking in the AM as the machine is forcefully pushing air into his mouth, and the humidification is working intermittently. Denies RLS. Diet is poor, he has gained over 50lbs and has gluten allergies. He walks daily 3x a wk for a mile. His mood is usually stable, memory is stable. Denies smoking, alcohol socially. [facility] Medical History Fatty liver Asthma Dysphagia C1 esterase inhibitor deficiency Lung nodules Right knee meniscal tear Abnormal mammogram Bradycardia Anemia GERD (gastroesophageal reflux disease) Jensen's disease REX (obstructive sleep apnea) HTN (hypertension) Surgical History History of right knee surgery No pertinent past surgical history Family History Father Brainstem hemorrhage Mother Diabetes mellitus Pacemaker Paternal Uncle Medical history non-contributory Sister Mental health disorder Brother Cancer Social History Household Members: Spouse Housing: House Are you a primary personal care aid to a significant other at home: No Do you presently have visiting nurse or other home services: No Alcohol intake: current Alcohol intake frequency: holidays/special occasions only Patient Tobacco Use Status: Never used Tobacco e-Cigarette/Vaping Use: Never Used Second Hand Smoke Exposure: No service: No Current occupational status: employed Current occupation: [employer] Current occupational exposures/hazards: Yes Cognitive needs: No Hearing needs: No Vision needs: No Physical Exam Vital Signs: Last Vital Signs Pulse 83 09/14/24 08:03 Pulse Ox 95 09/14/24 08:03 Oxygen Delivery Method Room Air 09/14/24 08:03 BMI result Body Mass Index 35.1 Results Reviewed Results Reviewed: CTscan August 2022 IMPRESSION: Small calcified right pulmonary nodules probably representing calcified granulomas. Mild diverticulosis of the colon. US/US abdomen complete IMPRESSION: Increased hepatic echogenicity which can be seen in the setting of hepatic steatosis or underlying liver disease. Assessment & Plan Assessment & Plan (1) REX on CPAP: Comment: last sleep study was over 10 years ago, no compliance data on file Code(s): G47.33 - Obstructive sleep apnea (adult) (pediatric) Category: Medical (2) Dry mouth: Code(s): R68.2 - Dry mouth, unspecified Category: Medical Plan HST to evaluate REX on cpap therapy. No compliance data on file, SD card is outdated. Dry mouth his pressures are too high for him and his mouth dries out in the AM, will try Xylemelts and increase humidification, increase humidity in the room with air filters and plants. Patient Instructions: Sleep Hygiene provided: set a scheduled bedtime and wake time to help regulate the circadian rhythm and balance the release of pituitary hormones. Sleep in a dark room, temperatures below 68 degrees, and no devices n bed. Limit ca ffeinated products 6 hours prior to bed, and limit fluids 2-4 hours prior to bed. Gentle night yoga, diffusing essential oils, and playing soft music can be relaxing. Coding Level of Care Code New Pt Level 4 (01788) Diagnoses REX on CPAP G47.33 Dry mouth R68.2 Time Spent (min) 40 Comment Evaluation of REX Sleep Questionnaire Difficulty falling asleep: No Difficulty staying asleep?: No Number of arousals: 1 Snoring: Yes (without cpap he snores loudly.) Witnessed apneas: No Gasping arousals: No Nocturia: No GERD: Yes Vivid dreams: Yes Acting out dreams: No Abnormal behavior in sleep: No Abnormal movements in sleep: No Morning headaches: No Excessive daytime sleepiness: No Daytime naps: No Restless legs: No Hallucinations: No Sleep paralysis: No Drop attacks: No Sleep Study: Yes (>10 years ago) CPAP: Yes
== END 2024-09-14 08:43 | disposition home or self-care (01) ==
LOC: HO.HSMS 07:51
PROVIDERS: PCP Nurse Practitioner Family; Visit Provider Physician Assistant Medical
DX: G47.33 Obstructive sleep apnea (adult) (pediatric) (principal); R68.2 Dry mouth, unspecified
CPT/HCPCS: 99204

== ENCOUNTER 2024-09-24 07:51 | Outpatient (AMB) | payer BC, SELFPAY ==
[2024-09-24 08:06] VITALS: BP 112/70; PULSE 83; TEMP 36.7; O2SAT 95; BMI 35.7
--- NOTE | 2024-09-24 08:06 | MHC.OFFWIV ---
Intake Vital Signs 09/24/24 08:06 Height 5 ft 11 in Weight 256 lb BMI 35.7 BP 112/70 Blood Pressure Location Rt brachial Pulse 83 Pulse Source Pulse Oximeter Temp 98.0 F Temp Source Oral Pulse Oximetry (%) 95 Oxygen Delivery Method Room Air Intake Visit Reasons: EP-chest congestion, cough Patient Tobacco Use Status: Never used Tobacco Allergies No Known Allergies Allergy (Verified 09/24/24 08:09) Do you need a note to return to daycare/school/sports/work: Yes HPI HPI Comments History of Present Illness Details History - The patient is a 59-year-old male presenting with symptoms of a viral upper respiratory infection. - Symptoms began two weeks ago after exposure to dust, with a scratchy throat progressing to cough and nasal congestion. - Reports minor nasal bleeding, but no fever or significant shortness of breath. - History of allergy-induced asthma, with no recent use of albuterol. - He is taking cetirizine daily to prevent skin reactions. - He has no sick contacts. - He is not a smoker - He denies fever, chills, CP, SOB, abd pain, n/v/d, CRUZ, ear pain. Physical Exam General: Cooperative, healthy appearing, comfortable and no acute distress Orientation/consciousness: Patient oriented x3 Limitations: No limitations Head: Normal to inspection Ears: Hearing grossly normal bilaterally, external ears normal, effusion noted in the right ear Nose: Normal external nose present, normal nares present, and no nasal discharge present. Face and sinus: Sinuses nontender to palpation. Mouth: Normal oral and palatal mucosa present and moist mucous membranes noted. Throat: Tonsils normal. Uvula is midline. Posterior oropharynx with erythema and no exudates. Neck: Normal visual inspection, full ROM. No lymphadenopathy noted. Respiratory: Clear to auscultation bilaterally. Normal respiratory effort, able to speak in complete sentences. No respiratory distress, not tachypneic, no tripod positioning and no use of accessory muscles. Patient reports coughing and bringing up a little bit of sputum. Cardiovascular: Regular rate and rhythm. Normal S1 and S2 Skin: No rashes or lesions noted. Patient was informed and verbally consented to the use of an ambient scribe for clinic note documentation during this visit [facility] Medical History Fatty liver Asthma Dysphagia C1 esterase inhibitor deficiency Lung nodules Right knee meniscal tear Abnormal mammogram Bradycardia Anemia GERD (gastroesophageal reflux disease) Jensen's disease REX (obstructive sleep apnea) HTN (hypertension) Surgical History History of right knee surgery No pertinent past surgical history Family History Father Brainstem hemorrhage Mother Diabetes mellitus Pacemaker Paternal Uncle Medical history non-contributory Sister Mental health disorder Brother Cancer Social History Household Members: Spouse Housing: House Are you a primary career placement services counselor to a significant other at home: No Do you presently have visiting nurse or other home services: No Alcohol intake: current Alcohol intake frequency: holidays/special occasions only Patient Tobacco Use Status: Never used Tobacco e-Cigarette/Vaping Use: Never Used Second Hand Smoke Exposure: No service: No Current occupational status: employed Current occupation: [employer] Current occupational exposures/hazards: Yes Cognitive needs: No Hearing needs: No Vision needs: No Review of Systems Const All systems reviewed & are unremarkable except as noted in HPI and below Physical Exam Vital Signs: Last Vital Signs Temp 98.0 F 09/24/24 08:06 Pulse 83 09/24/24 08:06 BP 112/70 09/24/24 08:06 Pulse Ox 95 09/24/24 08:06 Oxygen Delivery Method Room Air 09/24/24 08:06 BMI result Body Mass Index 35.7 Assessment & Plan Assessment & Plan (1) Cough: Code(s): R05.9 - Cough, unspecified Qualifiers: Cough type: acute Qualified Code(s): R05.1 - Acute cough Plan Most likely URI vs allergic rhinitis Plan - Use albuterol inhaler for wheezing related to allergy-induced asthma. - Administer cough medicine and decongestants for viral upper respiratory infection symptoms. - No chest x-ray needed; symptoms align with a viral infection. - VSS, pt well appearing - tylenol or motrin as needed - diet as tolerated - follow up with PCP Medications: New benzonatate 100 mg PO bid-tid PRN 21 caps 0RF Cough 7 days albuterol sulfate 90 mcg/actuation 2 puffs inhalation Q6H PRN 8.5 grams 0RF shortness of breath or wheezing or cough Coding Level of Care Code Est Pt Level 3 (69114) Diagnoses Acute cough R05.1 Cough type: acute
== END 2024-09-24 08:34 | disposition home or self-care (01) ==
PROVIDERS: PCP Nurse Practitioner Family; Visit Provider Physician Assistant Medical
DX: R05.1 Acute cough (principal)

== ENCOUNTER 2024-09-28 07:39 | Outpatient (AMB) | payer BC, SELFPAY ==
[2024-09-28 08:36] VITALS: BP 106/64; PULSE 95; TEMP 36.8; O2SAT 97; BMI 35.7
--- NOTE | 2024-09-28 08:36 | AM.OFFWIN_ITS ---
Intake Vital Signs 09/28/24 08:36 Height 5 ft 11 in Weight 256 lb BMI 35.7 BP 106/64 Blood Pressure Location Rt brachial Position Sitting Pulse 95 Pulse Source Pulse Oximeter Temp 98.3 F Temp Source Oral Pulse Oximetry (%) 97 Oxygen Delivery Method Room Air Intake Visit Reasons: EP-sore throat Intake Note: presents with sore throat, losing voice, productive cough, sinus congestion Patient Tobacco Use Status: Never used Tobacco Allergies No Known Allergies Allergy (Verified 09/28/24 08:40) Do you need a note to return to daycare/school/sports/work: No HPI HPI Comments History of Present Illness Details This is a 59-year-old male with a past medical history of seasonal allergies managed with Zyrtec daily, Jensen's thyroiditis, hypertension and obstructive sleep apnea presenting for evaluation of a sore throat. Patient states that his symptoms started approximately 10 days ago after mowing the lawn and ?there was a cloud of dust from my mower prior to the onset of symptoms. Patient was seen in the walk-in earlier this week and prescribed albuterol and Tessalon Perles. Patient states that his cough and sore throat is worse in the morning and is productive with yellow phlegm. Patient denies having any fevers, chills, chest pain or shortness of breath. [facility] Medical History Fatty liver Asthma Dysphagia C1 esterase inhibitor deficiency Lung nodules Right knee meniscal tear Abnormal mammogram Bradycardia Anemia GERD (gastroesophageal reflux disease) Jensen's disease REX (obstructive sleep apnea) HTN (hypertension) Surgical History History of right knee surgery No pertinent past surgical history Family History Father Brainstem hemorrhage Mother Diabetes mellitus Pacemaker Paternal Uncle Medical history non-contributory Sister Mental health disorder Brother Cancer Social History Household Members: Spouse Housing: House Are you a primary career services coordinator to a significant other at home: No Do you presently have visiting nurse or other home services: No Alcohol intake: current Alcohol intake frequency: holidays/special occasions only Patient Tobacco Use Status: Never used Tobacco e-Cigarette/Vaping Use: Never Used Second Hand Smoke Exposure: No service: No Current occupational status: employed Current occupation: [employer] Current occupational exposures/hazards: Yes Cognitive needs: No Hearing needs: No Vision needs: No Review of Systems Const All systems reviewed & are unremarkable except as noted in HPI and below Denies body aches, Denies chills, Denies fatigue and Denies fever(s) Eyes Reports no additional complaints ENT Reports no additional complaints, Denies otalgia, Denies facial pain, Denies sinus pain, Denies sinus pressure and Reports sore throat Card Reports no additional complaints and Denies chest pain Resp Reports no additional complaints, Reports cough and Denies hemoptysis GI Reports no additional complaints Reports no additional complaints Musc Reports no additional complaints Skin/Breast Reports system reviewed and no additional complaints, except as documented Neuro Reports no additional complaints Psych Reports no additional complaints Endo Denies fatigue Edgar/Lymph Reports no additional complaints Physical Exam Vital Signs: Last Vital Signs Temp 98.3 F 09/28/24 08:36 Pulse 95 09/28/24 08:36 BP 106/64 09/28/24 08:36 Pulse Ox 97 09/28/24 08:36 Oxygen Delivery Method Room Air 09/28/24 08:36 BMI result Body Mass Index 35.7 Patient is afebrile. Const General: cooperative, healthy appearing, comfortable, no acute distress, well developed, alert, awake and Physically active; No ill appearing Nutritional Appearance: well nourished Orientation/consciousness: patient oriented x3 Limitations: no limitations HEENT Head: Yes normal to inspection and Yes normocephalic Ears: hearing grossly normal bilaterally, external ears normal, TM's normal bilaterally and EAC's normal General nose exam: Normal external nose present Face and sinus: Yes normal facial exam and Yes sinuses nontender Mouth: Normal oral and palatal mucosa present and moist mucous membranes Throat: No posterior oropharynx abnormal and Yes postnasal drainage Eyes General: appearance normal, both eyes and all related structures Neck Lymphatic: no lymphadenopathy noted Resp Effort & Inspection: normal respiratory effort, no cough, respiratory effort not decreased, not labored and not tachypneic Auscultation: clear to auscultation bilaterally Cardio Rate: regular rate Rhythm: regular rhythm Skin General skin exam: no rashes or lesions noted Neuro General: patient oriented x3 Psych Appearance: grossly normal Mental Status: mental status grossly normal Insight: Good insight present (Psych) Judgement: Good judgement present (Psych) Results Reviewed Results Reviewed: Rapid strep is negative. Assessment & Plan Assessment & Plan (1) Allergic rhinitis with postnasal drip: Comment: Patient's rapid strep test is negative. Patient is afebrile and well-appearing. Patient will be discharged home. Code(s): J30.9 - Allergic rhinitis, unspecified; R09.82 - Postnasal drip Plan: Mucinex OTC with increase clear fluids daily, ibuprofen as needed for symptomatic treatment of pharyngitis and diphenhydramine at bedtime only as needed for postnasal drip. Coding Level of Care Code Est Pt Level 3 (37538) Diagnoses Allergic rhinitis with postnasal drip J30.9; R09.82 Time Spent (min) 20
== END 2024-09-28 09:11 | disposition home or self-care (01) ==
PROVIDERS: PCP Nurse Practitioner Family; Visit Provider Physician Assistant
DX: J30.9 Allergic rhinitis, unspecified (principal); R09.82 Postnasal drip; Z13.9 Encounter for screening, unspecified

== ENCOUNTER → 2024-09-28 07:39 | Outpatient (BNVA) | payer BC, SELFPAY | PROVIDERS: PCP Nurse Practitioner Family; Visit Provider Physician Assistant | DX: E06.3 Autoimmune thyroiditis (principal); I10 Essential (primary) hypertension; G47.33 Obstructive sleep apnea (adult) (pediatric); J30.9 Allergic rhinitis, unspecified; R09.82 Postnasal drip | CPT/HCPCS: 87880 ==

== ENCOUNTER 2024-12-18 12:38 | Outpatient (AMB) | payer BC, SELFPAY ==
[2024-12-18 12:55] VITALS: BP 128/72; PULSE 79; O2SAT 96; BMI 35.8
--- NOTE | 2024-12-18 12:55 | A.OFFVIS_ITS ---
Vital Signs 12/18/24 12:55 Height 5 ft 11 in Weight 256 lb 8 oz BMI 35.8 BP 128/72 Blood Pressure Location Rt brachial Position Sitting Pulse 79 Pulse Source Pulse Oximeter Pulse Oximetry (%) 96 Oxygen Delivery Method Room Air Intake Visit Reasons: 3 mo follow up Intake Note: Patient presents follow up REX. Compliance in chart(83/84days, >=4hrs-99%, Average Usage-7hrs 52min, Med Pressure- 9.5, Med Leaks-0.1, AHI-0.7). Accompanied by: Self / Same As Patient Allergies No Known Allergies Allergy (Verified 12/18/24 12:58) HPI Comments Details: 59 year old male with h/o Asthma and Lung Nodules, presents for a f/u of REX. REX Compliance Report August 2024 to Nov 2024 reviewed with pt. Total use is 83/84days, and >=4hrs- 94%, Average Usage-7hrs 52min Med Pressure 9.5, Med Leaks-0.1, AHI-0.7 He washes his mask, rinses hoses, changes filters and fills reservoir with water. He received his new cpap machine and supplies now and is able to use this machine more easily. He goes to sleep at 9pm, and gets up at 5am, with 1x bathroom break. He feels refreshed in the AM when he uses his cpap machine. Snoring has been eliminated. He has asthma and joint pain with fatigue when he does not use his machine. He grinds his teeth, though denies jaw pain. He notices his mouth gets dry upon waking in the AM as the machine is forcefully pushing air into his mouth, and the humidification is working intermittently, we discussed using a chin strap lina guidry. He has allergies and uses zyrtec daily due to environmental pollutants which cause the eyes to tear and lips to swell. He also has his rescue inhaler as needed. He denies morning headaches.Denies RLS. Diet is poor, he has gained over 50lbs and has gluten allergies. He drives long distances for work. His mood and memory is stable. Denies smoking, alcohol use socially. [facility] Medical History Fatty liver Asthma Dysphagia C1 esterase inhibitor deficiency Lung nodules Right knee meniscal tear Abnormal mammogram Bradycardia Anemia GERD (gastroesophageal reflux disease) Jensen's disease REX (obstructive sleep apnea) HTN (hypertension) Surgical History History of right knee surgery No pertinent past surgical history Family History Father Brainstem hemorrhage Mother Diabetes mellitus Pacemaker Paternal Uncle Medical history non-contributory Sister Mental health disorder Brother Cancer Social History Household Members: Spouse Housing: House Are you a primary transitional care nurse to a significant other at home: No Do you presently have visiting nurse or other home services: No Alcohol intake: current Alcohol intake frequency: holidays/special occasions only Patient Tobacco Use Status: Never used Tobacco e-Cigarette/Vaping Use: Never Used Second Hand Smoke Exposure: No service: No Current occupational status: employed Current occupation: [employer] Current occupational exposures/hazards: Yes Cognitive needs: No Hearing needs: No Vision needs: No Physical Exam Vital Signs: Last Vital Signs Pulse 79 12/18/24 12:55 BP 128/72 12/18/24 12:55 Pulse Ox 96 12/18/24 12:55 Oxygen Delivery Method Room Air 12/18/24 12:55 BMI result Body Mass Index 35.8 Const General: cooperative, comfortable and no acute distress Nutritional Appearance: average body habitus and overweight Orientation/consciousness: patient oriented x3 HEENT Face and sinus: Yes face symmetric Teeth and gingiva: other (mallampti score is 3) Eyes Pupils: Equal, round and reactive pupils present Neck Neck: Yes full ROM Resp Effort & Inspection: normal respiratory effort and able to speak in complete sentences Neuro General: patient oriented x3 and moves all extremities Cranial nerves: Yes Equal, round and reactive pupils present, Yes Normal accommodation reflex present, Yes Normal facial strength present, Yes Ability to bilaterally rotate head present and Yes Ability to bilaterally elevate shoulders present Cognition (Neuro): normal cognition Gait exam (Neuro): Normal gait present Motor exam (neuro): 5/5 motor strength present throughout and Normal motor muscle tone present throughout Psych Appearance: grossly normal Speech and movement: Normal speech and movement present Thought process: Normal thought process present Thought content: Normal thought content present Results Reviewed Results Reviewed: REX Compliance Report August 2024 to Nov 2024 reviewed with pt. Total use is 83/84days, and >=4hrs- 94%, Average Usage-7hrs 52min Med Pressure 9.5, Med Leaks-0.1, AHI-0.7 He washes his mask, rinses hoses, changes filters and fills reservoir with water. Assessment & Plan Assessment & Plan (1) REX on CPAP: Code(s): G47.33 - Obstructive sleep apnea (adult) (pediatric) Category: Medical (2) Environmental allergies: Code(s): Z91.09 - Other allergy status, other than to drugs and biological substances Category: Medical (3) Allergic rhinitis with postnasal drip: Code(s): J30.9 - Allergic rhinitis, unspecified; R09.82 - Postnasal drip Category: Medical (4) Anemia: Code(s): D64.9 - Anemia, unspecified Category: Medical (5) Excessive daytime sleepiness: Code(s): G47.19 - Other hypersomnia Category: Medical Plan REX on cpap therapy and he is compliant. Pt has refreshed sleep when using his cpap machine daily, he wakes up feeling energetic. Allergies continue to use Zyrtec and Albuterol rescue inhaler as needed for symptomatic treatment due to Asthma. Labs to r/o deficiencies and anemias. 6month f/u. Orders: Orders Comprehensive Met. Panel Today D64.9 - Anemia, unspecified, G47.19 - Other hype rsomnia Complete Blood Count no Diff Today D64.9 - Anemia, unspecified, G47.19 - Other hypersomnia Ferritin Today D64.9 - Anemia, unspecified, G47.19 - Other hypersomnia Hemoglobin A1c Today D64.9 - Anemia, unspecified, G47.19 - Other hypersomnia Methylmalonic Acid Today D64.9 - Anemia, unspecified, G47.19 - Other hypersomnia, G47.9 - Sleep disorder, unspecified, R53.83 - Other fatigue Homocysteine Today D64.9 - Anemia, unspecified, G47.19 - Other hypersomnia, G47.9 - Sleep disorder, unspecified, R53.83 - Other fatigue Vitamin D 25-OH Total Today D64.9 - Anemia, unspecified, G47.19 - Other hypersomnia Vitamin B12 and Folate Today D64.9 - Anemia, unspecified, G47.19 - Other hypersomnia TSH reflex Free T4 Today D64.9 - Anemia, unspecified, G47.19 - Other hypersomnia Patient Instructions: Sleep Hygiene provided: set a scheduled bedtime and wake time to help regulate the circadian rhythm and balance the release of pituitary hormones. Sleep in a dark room, temperatures below 68 degrees, and no devices n bed. Limit caffeinated products 6 hours prior to bed, and limit fluids 2-4 hours prior to bed. Gentle night yoga, diffusing essential oils, and playing soft music can be relaxing. Please complete the following fasting labs to rule out deficiencies. CBC/CMP/ B12/ Vit D/ TSH/ Homocysteine and MMA/ Ferritin. Coding Level of Care Code Est Pt Level 4 (28684) Diagnoses REX on CPAP G47.33 Environmental allergies Z91.09 Allergic rhinitis with postnasal drip J30.9; R09.82 Anemia D64.9 Excessive daytime sleepiness G47.19
== END 2024-12-18 13:25 | disposition home or self-care (01) ==
LOC: HO.HSMS 12:39
PROVIDERS: PCP Nurse Practitioner Family; Visit Provider Physician Assistant Medical
DX: G47.33 Obstructive sleep apnea (adult) (pediatric) (principal); Z91.09 Other allergy status, other than to drugs and biological substances; J30.9 Allergic rhinitis, unspecified; R09.82 Postnasal drip; D64.9 Anemia, unspecified; G47.19 Other hypersomnia
CPT/HCPCS: 99214

== ENCOUNTER 2024-12-21 07:49 | Outpatient (REF) | payer BC, SELFPAY ==
[2024-12-21 08:38] LABS: Hematocrit 45.1 % (42.0-52.0); Hemoglobin 14.8 g/dl (14.0-18.0); Mean Corpuscular HGB Conc 32.8 g/dl (31.0-36.0); Mean Corpuscular Hemoglobin 28.5 pg (27.0-33.0); Mean Corpuscular Volume 86.9 fL (80.0-98.0); NRBC Abs Auto 0.000 X10*3/uL (0.0-0.012); NRBC Pct Auto 0.0 /100WBC (0.0-0.2); Platelet Count 240 X10*3/uL (160-400); Red Blood Count 5.19 X10*6/uL (4.60-5.80); White Blood Count 6.9 X10*3/uL (4.8-10.8)
[2024-12-21 09:07] LABS: Alanine Aminotransferase 57 U/L (0-40); Albumin Level 4.3 g/dL (3.5-5.0); Alkaline Phosphatase 84 U/L (39-117); Anion Gap 12 (12-20); Aspartate Amino Transferase 26 U/L (5-37); Blood Urea Nitrogen 18 mg/dL (9-16); Calcium 9.2 mg/dL (8.4-10.2); Carbon Dioxide 27 mmol/L (22-29); Chloride 108 mmol/L (96-108); Estimated Glomerular Filt Rate > 60; Potassium 4.7 mmol/L (3.3-5.1); Sodium 142 mmol/L (135-145); Total Protein 7.7 g/dL (6.5-8.0)
[2024-12-21 09:17] LABS: Ferritin 461 ng/mL (20-250)
[2024-12-21 09:32] LABS: Folate 16.4 ng/mL (> or = 4.0); Vitamin B12 899 pg/mL (200-900)
[2024-12-21 10:20] LABS: Free T4 (Free Thyroxine) 0.89 ng/dL (0.71-1.85)
== END 2024-12-21 07:50 | disposition home or self-care (01) ==
LOC: HO.LAB 07:49
PROVIDERS: PCP Nurse Practitioner Family; Visit Provider Physician Assistant Medical
DX: G47.19 Other hypersomnia (principal); D64.9 Anemia, unspecified; R53.83 Other fatigue; Z13.1 Encounter for screening for diabetes mellitus
CPT/HCPCS: 36415; 80053; 82306; 82607; 82728; 82746; 83036; 83090; 83921; 84439; 84443; 85027